=== PATIENT | male | born 1980 | race Caucasian/White ===

== ENCOUNTER 2017-10-04 16:59 | Emergency (ER) | payer BC, MEDICARE, MEDICAID ==
[2017-10-04] MEDS ORDERED: Fluorescein Sod TOPICAL 0.6* 0.6 MG TEST OPHTHALMIC ONE (19:59)
[2017-10-04] MEDS ORDERED: Cyclopentolate 1% OPTH.SOL* 2 ML BTL ONE (20:00)
[2017-10-04 20:44] VITALS: BP 145/94
--- NOTE | 2017-10-06 11:40 | ED ---
Jabari Herron Rebecca, scribed for Liu Jaimes MD on 10/04/17 at 1956 . Throat Pain/Nasal Congestion - HPI Summary HPI Summary: Pt is a 37 y/o M who presents to ED c/o L eye pain and purulent drainage s/p trauma. Reports that at approximately 1100, he was working in his yard when his son tossed a log over a wagon, hitting the pt in the L eye. States the sensation during injury was that is "felt like I caught something in the eye" and that the log was large, hitting him directly in the eye. Associated pain is mild, ranked 3/10. Additionally c/o blurred vision. Denies photophobia. Does not wear contacts and SHx is negative for smoking. - History of Current Complaint Chief Complaint: EDEyeProblem Time Seen by Provider: 10/04/17 19:49 Hx Obtained From: Patient Onset/Duration: Lasting Hours - Since 1100, Still Present Severity: Mild - 3/10 Cough: None - Allergies/Home Medications Allergies/Adverse Reactions: Allergies Allergy/AdvReac Type Severity Reaction Status Date / Time MS Hydromorphone Allergy Unknown See Comment Verified 01/16/17 12:13 [From Dilaudid] Adhesive Tape Allergy Swelling Verified 01/16/17 12:13 [Tegaderm Dressing] MS Amitriptyline AdvReac Unknown See Comment Verified 01/16/17 12:13 [From Elavil] CLEAR PLASTIC TAPE AdvReac Severe Swelling Uncoded 01/16/17 12:13 PMH/Surg Hx/FS Hx/Imm Hx Endocrine/Hematology History: Denies: Hx Diabetes, Hx Thyroid Disease Cardiovascular History: Reports: Hx Deep Vein Thrombosis, Hx Hypertension - HAS NOT STARTED MEDS YET Denies: Hx Pacemaker/ICD Respiratory History: Reports: Hx Asthma - USES INHALERS-MILD, Hx Pulmonary Embolism - 2010 Denies: Hx Chronic Obstructive Pulmonary Disease (COPD) GI History: Reports: Hx Gastroesophageal Reflux Disease, Hx Ulcer, Other GI Disorders - pain across R flank and abdomen History: Reports: Hx Kidney Stones, Other Problems/Disorders - mild damage to right kidney Denies: Hx Renal Disease Musculoskeletal History: Reports: Hx Arthritis - BACK, ELBOW, Hx Back Problems - low back pain Sensory History: Denies: Hx Contacts or Glasses, Hx Hearing Aid Opthamlomology History: Denies: Hx Contacts or Glasses Neurological History: Comment Only: Other Neuro Impairments/Disorders - PT STATES HAVEING 5 BACK SURGURIES Psychiatric History: Reports: Hx Anxiety - MEDS IN THE PAST, Hx Depression - MEDS IN THE PAST Denies: Hx Panic Disorder - Surgical History Surgery Procedure, Year, and Place: [place]SP SPINAL [place] [facility] [place]FROM INFECTION TO TISSUE IN BACK-MRSA). TONSILLECTOMY A CHILD. MYRINGOTOMY BILAT A CHILD. [place]RETERAL STENTS- [place] [facility] [place] chest mass (benign) Hx Anesthesia Reactions: Yes - HALLUCINATED WHEN AWAKENING AFTER ZPLASTY Infectious Disease History: No Infectious Disease History: Reports: Hx of Known/Suspected MRSA - lower back - post surgery Denies: Hx Hepatitis, Hx Human Immunodeficiency Virus (HIV), Traveled Outside the [place] in Last 30 Days - Family History Known Family History: Positive: Hypertension - father - Social History Alcohol Use: Rare Substance Use Type: Reports: None Smoking Status (MU): Former Smoker Type: Cigarettes Have You Smoked in the Last Year: No Review of Systems Negative: Fever Positive: Blurred Vision, Drainage - Purulent, Other - L eye pain. Negative: Photophobia All Other Systems Reviewed And Are Negative: Yes Physical Exam - Summary Physical Exam Summary: Appearance: Well appearing, no pain distress Skin: warm, dry, reflects adequate perfusion Head/face: normal Eyes: EOMI, BEATA, the bottom half of the left eye's conjunctiva is injected, there is some lower lid edema with an abrasion and a puncture just on the lower surface of the eyelid with some ecchymosis and purulent drainage. The skin tear on the lateral margin of the lower eyelid does not go through and through. There is no hypopyon. Total relief of discomfort with cyclogel eye drops. No fluorescein uptake. On the split lamp exam, he had maybe a few cells seen. No corneal injury. ENT: normal Neck: supple, non-tender Respiratory: CTA, breath sounds present Cardiovascular: RRR, pulses symmetrical Abdomen: non-tender, soft Bowel Sounds: present Musculoskeletal: normal, strength/ROM intact Neuro: normal, sensory motor intact, A&Ox3 Visual acuity: R (uninjured eye) - 20/25; L (injured eye) - 20/70, patient wears glasses and does not know his prescription. Triage Information Reviewed: Yes Vital Signs On Initial Exam: Initial Vitals Temp Pulse Resp BP Pulse Ox 99.4 F 85 16 155/95 98 10/04/17 17:20 10/04/17 17:20 10/04/17 17:20 10/04/17 17:20 10/04/17 17:20 Vital Signs Reviewed: Yes Diagnostics - Vital Signs Vital Signs Temp Pulse Resp BP Pulse Ox 10/04/17 17:20 99.4 F 85 16 155/95 98 - Laboratory Lab Statement: Any lab studies that have been ordered have been reviewed, and results considered in the medical decision making process. Re-Evaluation - Re-Evaluation First Eval Re-Evaluation Time: 20:23 Change: Improved Comment: Pain is resolved. EENT Course/Dx - Course Course Of Treatment: Pt with blunt injury to the L eye with some photosensitivity and some reported floaters. No hyphema or hypopeon. ? cell on slit lamp exam. Pain gone with cyclogel. Small abrasion to lower lid. D/W ophtho who will f/u pormptly. Rx for tobramycin drops and ketorolac drops. Will cont cyclogel bid. - Diagnoses Provider Diagnoses: Traumatic iritis, Contusion, eyelid, Eyelid abrasion - Provider Notifications Discussed Care Of Patient With: Darrel Lucia Time Discussed With Above Provider: 20:20 Instructed by Provider To: Other - Agreed with tobramycin drops and ketorolac drops and the pt will do cyclogel BID. Discharge - Sign-Out/Discharge Documenting (check all that apply): Discharge - Discharge - Discharge Plan Condition: Good Disposition: HOME Prescriptions: Ketorolac 0.5% OPHTH (NF) 1 drop LEFT EYE QID PRN #1 btl PRN Reason: eye pain Tobramycin 0.3% OPHTH.SINA* 1 drop LEFT EYE Q4H #1 btl Patient Education Materials: Iritis (ED) Referrals: Darrel Lucia MD [Medical Doctor] - 10/06/17 (Follow up with Dr. Lucia on Friday morning at 8 a.m.) Elissa David MD [Primary Care Provider] - Additional Instructions: use provided eye drops 1 drop twice a day. See the eye doctor Friday, call at 8am. Return with increased pain, vision loss or other concerns. Bacitracin to the abrasion on the eye lid. - Billing Disposition and Condition Condition: GOOD Disposition: HOME The documentation as recorded by the Jabari gant Rebecca accurately reflects the service I personally performed and the decisions made by me, Liu Jaimes MD.
== END 2017-10-04 20:40 | disposition home or self-care (01) ==
LOC: ED 16:59
DX: H20.9 Unspecified iridocyclitis (principal); S00.12XA Contusion of left eyelid and periocular area, initial encounter; S00.212A Abrasion of left eyelid and periocular area, initial encounter; K21.9 Gastro-esophageal reflux disease without esophagitis; W20.8XXA Other cause of strike by thrown, projected or falling object, initial encounter; Y93.H2 Activity, gardening and landscaping; Y92.9 Unspecified place or not applicable; I10 Essential (primary) hypertension; Z86.718 Personal history of other venous thrombosis and embolism; J45.909 Unspecified asthma, uncomplicated; Z86.711 Personal history of pulmonary embolism; Z87.891 Personal history of nicotine dependence
CPT/HCPCS: 99282; A9270-GY

== ENCOUNTER 2019-04-06 14:33 | Emergency (ER) | payer BC, MEDICARE, MEDICAID ==
[2019-04-06] MEDS ORDERED: Aspirin 81 mg CHEW TAB* 81 MG TAB.CHEW PO ONE (16:50)
[2019-04-06 17:12] LABS: ABS Basophils 0.1 10^3/ul (0-0.2); ABS Eosinophils 0.1 10^3/ul (0-0.6); ABS Lymphocytes 1.5 10^3/ul (1.0-4.8); ABS Monocytes 0.6 10^3/ul (0-0.8); ABS Neutrophils 5.9 10^3/ul (1.5-7.7); Eosinophil % 1.7 %; Hematocrit 45 % (42-52); Hemoglobin 15.2 g/dL (14.0-18.0); Lymphocyte % 18.5 %; Mean Corpuscular HGB Conc 34 g/dL (31-36); Mean Corpuscular Hemoglobin 29 pg (27-31); Mean Corpuscular Volume 84 fL (80-94); Mean Platelet Volume 9.2 fL (7.4-10.4); Platelet Count 232 10^3/uL (150-450); Red Blood Count 5.34 10^6 /uL (4.18-5.48); Red Cell Distribution Width 13 % (10-15); White Blood Count 8.3 10^3/uL (3.5-10.8)
--- NOTE | 2019-04-06 17:23 | ED ---
HPI Chest Pain - HPI Summary HPI Summary: 38-year-old male presents with sharp pain in his left upper chest that radiates to his left arm. He states that he did have some lightheadedness and shortness breath with exertion. He denies any shortness breath currently. Denies any chest pain currently. No cough. No recent illness. Pain does not change with position changes. No nausea or vomiting. No diaphoresis. Does have a family and personal history of blood clots. Is not currently on blood thinners. He is being treated for high blood pressure. Pain feels similar to when he had a PE in the past. No recent travel. Is nonsmoker. - History of Current Complaint Chief Complaint: EDShortnessOfBreath Time Seen by Provider: 04/06/19 16:43 Pain Intensity: 5 - Allergy/Home Medications Allergies/Adverse Reactions: Allergies Allergy/AdvReac Type Severity Reaction Status Date / Time Adhesive Tape Allergy Swelling Verified 04/06/19 15:11 [Tegaderm Dressing] amitriptyline Allergy Unknown Verified 04/06/19 15:11 Reaction Details hydromorphone [From Dilaudid] Allergy Unknown Verified 04/06/19 15:11 Reaction Details CLEAR PLASTIC TAPE AdvReac Severe Swelling Uncoded 01/28/18 10:43 Home Medications: Home Medications NK [No Home Medications Reported] 04/06/19 [History Confirmed 04/06/19] PMH/Surg Hx/FS Hx/Imm Hx Endocrine/Hematology History: Denies: Hx Diabetes, Hx Thyroid Disease Cardiovascular History: Reports: Hx Deep Vein Thrombosis, Hx Hypertension - MEDS Denies: Hx Pacemaker/ICD Respiratory History: Reports: Hx Asthma - USES INHALERS-MILD, Hx Pulmonary Embolism - 2009 Denies: Hx Chronic Obstructive Pulmonary Disease (COPD) GI History: Reports: Hx Gastroesophageal Reflux Disease, Hx Ulcer, Other GI Disorders - pain across R flank and abdomen History: Reports: Hx Kidney Stones, Other Problems/Disorders - mild damage to right kidney Denies: Hx Renal Disease Musculoskeletal History: Reports: Hx Arthritis - BACK, ELBOW, Hx Back Problems - low back pain Sensory History: Denies: Hx Contacts or Glasses, Hx Hearing Aid Opthamlomology History: Denies: Hx Contacts or Glasses Neurological History: Comment Only: Other Neuro Impairments/Disorders - PT STATES HAVEING 5 BACK SURGURIES Psychiatric History: Reports: Hx Anxiety - MEDS IN THE PAST, Hx Depression - MEDS IN THE PAST, Hx Panic Disorder - ANXIETY - Surgical History Surgery Procedure, Year, and Place: LSP SPINAL SURGERY x 6 MOST RECENT 2013 [facility]. ZPLASTY BACK (FROM INFECTION TO TISSUE IN BACK-MRSA). TONSILLECTOMY A CHILD. MYRINGOTOMY BILAT A CHILD. URETERAL STENTS- 2009 [facility]-REMOVED. exc chest mass (benign) Hx Anesthesia Reactions: Yes - HALLUCINATED WHEN AWAKENING AFTER ZPLASTY Infectious Disease History: No Infectious Disease History: Reports: Hx of Known/Suspected MRSA - lower back - post surgery Denies: Hx Hepatitis, Hx Human Immunodeficiency Virus (HIV), Traveled Outside the [place] in Last 30 Days - Family History Known Family History: Positive: Hypertension - father - Social History Alcohol Use: None Substance Use Type: Reports: None Substance Use Comment - Amount & Last Used: "cbd oil" Hx Tobacco Use: No Smoking Status (MU): Former Smoker Type: Cigarettes Have You Smoked in the Last Year: No Review of Systems Negative: Fever Positive: Chest Pain Positive: Shortness Of Breath. Negative: Cough Negative: Abdominal Pain All Other Systems Reviewed And Are Negative: Yes Physical Exam Triage Information Reviewed: Yes Vital Signs On Initial Exam: Initial Vitals Temp Pulse Resp BP Pulse Ox 98.9 F 84 18 157/103 98 04/06/19 15:05 04/06/19 15:05 04/06/19 15:05 04/06/19 15:05 04/06/19 15:05 Vital Signs Reviewed: Yes Appearance: Positive: Well-Appearing Skin: Positive: Warm, Dry Head/Face: Positive: Normal Head/Face Inspection Eyes: Positive: Normal, EOMI, BEATA, Conjunctiva Clear ENT: Positive: Pharynx normal Respiratory/Lung Sounds: Positive: Clear to Auscultation, Breath Sounds Present Cardiovascular: Positive: Normal, RRR Abdomen Description: Positive: Nontender, Soft Bowel Sounds: Positive: Present Musculoskeletal: Positive: Normal Neurological: Positive: Normal Psychiatric: Positive: Normal Procedures - Sedation Patient Received Moderate/Deep Sedation with Procedure: No Diagnostics - Vital Signs Vital Signs Temp Pulse Resp BP Pulse Ox 04/06/19 15:05 98.9 F 84 18 157/103 98 - Laboratory Lab Results: Lab Results 04/06/19 Range/Units 16:55 WBC 8.3 (3.5-10.8) 10^3/uL RBC 5.34 (4.18-5.48) 10^6 /uL Hgb 15.2 (14.0-18.0) g/dL Hct 45 (42-52) % MCV 84 (80-94) fL MCH 29 (27-31) pg MCHC 34 (31-36) g/dL RDW 13 (10-15) % Plt Count 232 (150-450) 10^3/uL MPV 9.2 (7.4-10.4) fL Neut % (Auto) 71.5 % Lymph % (Auto) 18.5 % [place] % (Auto) 7.6 % Eos % (Auto) 1.7 % Baso % (Auto) 0.7 % Absolute Neuts (auto) 5.9 (1.5-7.7) 10^3/ul Absolute Lymphs (auto) 1.5 (1.0-4.8) 10^3/ul Absolute Monos (auto) 0.6 (0-0.8) 10^3/ul Absolute Eos (auto) 0.1 (0-0.6) 10^3/ul Absolute Basos (auto) 0.1 (0-0.2) 10^3/ul Absolute Nucleated RBC 0.0 10^3/ul Nucleated RBC % 0.0 Result Diagrams: 04/06/19 16:55 04/06/19 16:55 Lab Statement: Any lab studies that have been ordered have been reviewed, and results considered in the medical decision making process. - Radiology chest Radiology Interpretation Completed By: Radiologist Summary of Radiographic Findings: IMPRESSION: NO ACTIVE CARDIOPULMONARY DISEASE. - EKG No standard instances Cardiac Rate: NL EKG Rhythm: Sinus Rhythm EKG Comparison: No Significant Change Summary of EKG Findings: sinus rhythm Re-Evaluation - Re-Evaluation First Eval Re-Evaluation Time: 18:02 Change: Unchanged Comment: pain no improvement with nitro Second Eval Re-Evaluation Time: 19:20 Change: Improved Comment: feeling better after toradol Third Eval Re-Evaluation Time: 20:37 Change: Improved Comment: no chest pain Chest Pain Course/Dx - Course Course Of Treatment: 38-year-old male presents with sharp pain in his left upper chest that radiates to his left arm. He states that he did have some lightheadedness and shortness breath with exertion. He denies any shortness breath currently. Denies any chest pain currently. No cough. No recent illness. Pain does not change with position changes. No nausea or vomiting. No diaphoresis. Does have a family and personal history of blood clots. Is not currently on blood thinners. He is being treated for high blood pressure. Pain feels similar to when he had a PE in the past. No recent travel. Is nonsmoker. On exam lungs CTA. Nonreproducible chest pain. ekg sinus rhythm. pain unchanged with nitro. pain resolved with troponin. troponin zerox 2. d- dimer negative. heart score 3. will discharge to have follow up with primary. patient understand and agrees with plan. - Chest Pain Differential Diagnosis/HQI/PQRI: Acute OR, Chest Wall, Pulmonary Embolism - Diagnoses Provider Diagnoses: Left arm pain, Atypical chest pain Discharge ED - Sign-Out/Discharge Documenting (check all that apply): Patient Departure - Discharge Plan Condition: Good Disposition: HOME Patient Education Materials: Chest Pain (ED) Referrals: Elissa David MD [Primary Care Provider] - Additional Instructions: take tyenlol or ibuprofen every 6 hours as needed for pain Follow up with primary within 5 days Return to ED if develop any chest pain or any new or worsening symptoms - Billing Disposition and Condition Condition: GOOD Disposition: Home
[2019-04-06 17:32] LABS: Albumin 4.2 g/dL (3.2-5.2); Albumin/Globulin Ratio 1.7 (1-3); BUN/Creatinine Ratio 15.9 (8-20); C Reactive Protein 3.61 mg/L (<8.01); Calcium 9.2 mg/dL (8.6-10.3); EGFR African American 92.6 (>60); EGFR Non-African American 76.5 (>60); Globulin 2.5 g/dL (2-4); Potassium 3.8 mmol/L (3.5-5.0); Total Bilirubin 1.2 mg/dL (0.2-1.0); Total Protein 6.7 g/dL (6.4-8.9)
[2019-04-06] MEDS ORDERED: Nitroglycerin TAB 0.4 MG* 0.4 MG TAB SL ONE (17:36)
[2019-04-06] MEDS ORDERED: Ketorolac INJ* 30 MG/ML 1 ML VIAL IV PUSH ONE (18:01)
[2019-04-06 20:40] VITALS: BP 147/97
== END 2019-04-06 20:44 | disposition home or self-care (01) ==
LOC: ED 14:33
DX: R07.89 Other chest pain (principal); M79.602 Pain in left arm; I10 Essential (primary) hypertension; J45.909 Unspecified asthma, uncomplicated; K21.9 Gastro-esophageal reflux disease without esophagitis; F41.9 Anxiety disorder, unspecified; F32.9 Major depressive disorder, single episode, unspecified; Z86.718 Personal history of other venous thrombosis and embolism; Z86.711 Personal history of pulmonary embolism; Z87.891 Personal history of nicotine dependence; Z88.5 Allergy status to narcotic agent; Z88.8 Allergy status to other drugs, medicaments and biological substances
CPT/HCPCS: 36415; 71046; 80053; 83605; 83880; 84484; 85025; 85379; 86140; 96374; 99284; A9270-GY; J1885